=== PATIENT | female | born 1945 | race Caucasian/White ===

== ENCOUNTER 2020-12-04 16:18 | Inpatient (IN) | payer OTHER ==
[~2020-12-04] VITALS: Ht 162.6 cm; Wt 69.9 kg
[~2020-12-04 16:18] MED LIST: ADULT LOW DOSE81 MG PO; AMITRIPTYLINE H25 M2 PO; ARICEPT 5 MG TAB5 MG PO; AZITHROMYCIN 2250 MG PO; BENTYL PO; BIOTIN5000 MCG PO; BUPROPION XL150 MG PO; BUSPAR PO; BUTALB-CAFF-AC1 EACH PO; CALCIUM 600 +1 EAC1 PO; CEFDINIR300 MG PO; CHROMIUM PICO200 MCG PO; CYMBALTA60 MG PO; FENOFIBRATE160 MG PO; FLAGYL500 M1 PO; FOSAMAX 70 MG T70 M1 PO; INDERAL LA 80 M80 M1 PO; KEFLEX500 M1 PO; LEVOTHYROXINE0.05 MG PO; LOPERAMIDE 2 MG2 M1 PO; MENOPAUSE SUPPO20 MG PO; MIRALAX119 GM PO; MOBIC15 MG PO; NIASPAN ER 101000 M1 PO; NORCO 5-325 TA1 EAC1 PO; OSCIMIN0.125 MG PO; PRILOSEC40 MG PO; PROAIR HFA8.5 GM INH; REMIFEMIN; RESTORIL15 MG PO; SIMVASTATIN40 MG PO; TRAMADOL 50 MG50 MG; VENLAFAXINE HC150 M1 PO; VITAMIN D2000 UNIT PO; VITAMIN E400 UNIT PO; VITAMINC500 PO; XANAX 0.25 MG0.25 MG PO; XANAX 0.5 MG0.5 MG PO
[2020-12-05 05:20] VITALS: BP 136/85
--- NOTE | 2020-12-05 07:55 | NUR ---
Admitted via ER via [facility] and facility. Alert and orientated to name only but states she is at [facility]. Calm, cooperative and compliant. Able to answer many of the question coherently. Ambulates with regular, steady gait. Reportedly took extra amytriptiline and xanax wanting to "end it all". Continues to state that she wants to end it all and that it would be nice to go to sleep and not wake up but denies having a plan or wanting to actively harm herself. Denies SI. States she is frequently losing her phone and checkbook and became angry and had an outburst because she did not want to disappoint her sister. Breath sounds clear. Reg HR auscultated. Color pink with brisk capillary refill and palpable peripheral pulses. No edema noted. Independent with voiding. States she needs to take Imodium prior to eating d/t diarrhea. Active bowel sounds over soft, rounded abdomen. Stool in ER per report. Hemmoroids around rectum. Currently sitting in dining room without s/o distress. Message left for DPRAJESH to call unit to obtain consents. Dr. Cardoso and Dr. Morris notified of admission, orders obtained.
[2020-12-05] MEDS ORDERED: BENTYL 10 MG CA10 M1 PO (08:32)
[2020-12-05] MEDS ORDERED: LEVOTHYROXINE50 MCG PO (08:32)
[2020-12-05] MEDS ORDERED: SINGULAIR 10 MG10 M1 PO (08:32)
[2020-12-05] MEDS ORDERED: NORVASC5 MG PO (08:33)
[2020-12-05 10:10] VITALS: BP 124/72
--- NOTE | 2020-12-05 18:44 | NUR ---
DYSPHORIC MOOD-IRRITABLE AND DEMANDING WITH NURSING STAFF- CONVERSING LOUDLY IN DAYROOM WITH PEERS AT BREAK[employer]ST STATING "THIS PLACE IS TERRIBLE I HAVEN'T GOTTEN MY IMMODIUM SO I CAN'T EAT" ""I DON'T KNOW WHAT TO DO-NOBODY IS TALKING TO ME" EXPLAINED TO PT ADMIT ORDERS WERE BEING ENTERED AND PHARMACY HAD NOT VERIFIED SO MED WASN'T AVAILABLE-OFFERED TO HOLD BACK BREAKFAST TRAY AND HEAT UP LATER BUT REFUSES-THEN LOUDLY STATING IN DAY ROOM "I HAD BM IN MY PANTS BECAUSE I DIDN'T GET MY IMMODIUM" DENIES SI/SH. DENIES C/O PAIN. GAIT STEADY WITHOUT ASSISTIVE DEVICES.
[2020-12-05 19:39] VITALS: BP 143/88
--- NOTE | 2020-12-06 03:10 | NUR ---
ASSUMED CARE FROM DAY SHIFT , PT AMBULATING IN HALLWAY AND DAYROOM, WITH FLAT AFFECT AND APPEARS TO KNOW WHY SHE IN HOSPTIAL AND THAT SHE IS EEVN IN THE HOSPTIAL. PT IS ALERT AND ORIENTED TO SELF. PT COOPERATIVE TOOK PO MEDICATION, AWAKE IN DAYROOM AND REFUSE TO RETURN TO ROOM TO REST. PT REMANIN UP IN DAYROOM TALKING TO OTHER THAT ARE NOT SLEEPING . PT REMAIN CALM AND COOPEATIVE, WILL REPORT CHANGES OR ABNORMAL FINDINGS.
[2020-12-06 10:00] VITALS: BP 136/88
--- NOTE | 2020-12-06 13:33 | NUR ---
Nutrition: pt admit after transfer from [facility] with unspecified dression, SI. Pt with hx of IBS-chronic diarrhea; has to take Immodium q am. Intake 50-75%. Wt is WNL. Per [facility] records, wt's in 2020 were 140-150 lb; no significant loss. No metabolic labs, TSH >4. Meds: Levothyroxine, lopermide, vit E, vit D, vit C, calcium. Pt assessed at low nutrition risk at this time.
--- NOTE | 2020-12-06 14:07 | NUR ---
Alert and orientated to name and place. Denies SI/HI. Confused speech at times. Interacting with peers and staff. Breath sounds clear. Reg HR auscultated. Color pink with brisk capillary refill and palpable peripheral pulses. No edema. Independent with voiding. Reports BM yesterday. Active bowel sounds over soft, rounded abdomen. Regular, steady gait. Currently participating in group without s/o distress.
--- NOTE | 2020-12-06 16:03 | NUR ---
MARIA DEL CARMEN attempted to contact Pt's son Bony. SW left a message for a return call
[2020-12-06 19:54] VITALS: BP 136/73
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
--- NOTE | 2020-12-06 22:31 | NUR ---
PT SITTING IN CHAIR WITH FEMALE PEERS AT TABLE. PT NOT COLORING WITH PEERS BUT TALKING WITH THEM. PT HAS DAVIS FACE, GUARDED WITH STAFF. PT COMPLIANT WITH MEDS. PT JOKING WITH NURSE BUT FACIAL EXPRESSIONS DO NOT MATCH JOKING TONE OF VOICE. STEADY GAIT.
[2020-12-07 08:31] VITALS: BP 108/67
--- NOTE | 2020-12-07 13:14 | NUR ---
Alert and orientated to person and place. Denies SI/HI. Does not recall taking extra meds which promted admission but states she is glad they took it seriously. Ambulates with regular, steady gait. Interacting with peers. Breath sounds clear. Reg HR auscultated. Color pink with brisk capillary refill and palpable peripheral pulses. Independent with voiding. Reports BM yesterday. Active bowel sounds over soft, flat abdomen. Area around anus much less red without excoriation, improved since yesterday.
--- NOTE | 2020-12-07 13:55 | NUR ---
SW left message for pt's son stating we are trying to reach him to schedule a family meeting. MARIA DEL CARMEN asked for a return call. SW team will continue to monitor.
[2020-12-07 20:06] VITALS: BP 90/52
[2020-12-07 22:23] LABS: URINE BILIRUBIN NEGATIVE (Negative); URINE BLOOD 3+ (Negative); URINE CLARITY SL CLOUDY; URINE COLOR YELLOW; URINE GLUCOSE-RANDOM* NEGATIVE (Negative); URINE KETONES NEGATIVE (Negative); URINE PROTEIN (DIPSTICK) TRACE (Negative); URINE UROBILINOGEN 0.2 E.U./dl (0.2-1.0)
[2020-12-07 22:25] LABS: URINE LEUKOCYTES-REFLEX 3+ (Negative); URINE NITRITE-REFLEX POSITIVE (Negative)
[2020-12-07 22:32] LABS: CASTS None Seen /LPF (None Seen); RENAL EPITHELIAL CELLS 4-10 Moderate /LPF (None Seen); SQUAMOUS 0-3 Few /LPF (0-3); URINE RBC >20 Many /HPF (0-2); URINE WBC-REFLEX >25 Many /HPF (0-5)
[2020-12-07 22:33] LABS: BACTERIA-REFLEX >30 Many /HPF (None Seen); CRYSTALS None Seen /LPF (None Seen)
--- NOTE | 2020-12-07 22:54 | NUR ---
Pt. ambulating in unit without s/o distress. Given hat to obtain UA. Results called to RICKY Nelson, states she will place order.
--- NOTE | 2020-12-08 03:50 | NUR ---
Assumed care on 12/08/20 @ 0001, @ 0330 noted to be awake, seated at a table in the day room socializing with a peer. Asks the time and says she slept for a while, and then woke up, so she throught that she would come to "the livingroom for a while". Reports that she slept well while she was asleep.
[2020-12-08 10:01] VITALS: BP 106/67
--- NOTE | 2020-12-08 14:40 | NUR ---
MARIA DEL CARMEN left voice message asking Arslan to call MARIA DEL CARMEN regarding scheduling a family meeting. He returned the phone call and left a message. When MARIA DEL CARMEN attempted to reach him several times yesterday as well as today, MARIA DEL CARMEN received a message stating his voicemail box is full. MARIA DEL CARMEN was not able to leave additional message. MARIA DEL CARMEN team will remain available.
--- NOTE | 2020-12-08 16:44 | NUR ---
ORIENTED TO NAME ONLY THIS AM-IS AWARE THAT SHE IS HOSPITAL AND ATTEMPTS TO COVER CONFUSION BY STATING "DON'T YOU KNOW YOU WORK HERE" DEPENDENT,NEEDY AT TIMES ASKING PEERS TO GET HER WATER OR GET A BLANKET FOR HER DESPITE BEING SHOWN WHERE SHE CAN GET HER OWN. GAIT IS STEADY WITHOUT ASSISTVE DEVICES. COMPLIENT WITH MEDS ALTHOUGH APPEARS SUSPICIOUS WHEN GIVEN 1200 BENTYL AND EXPLAINED IT WAS FOR HER CHRONIC IBS/BOWEL ISSUES STATES "I DON'T HAVE AN BOWEL ISSUES THAT IS NOT MINE" DYSPHORIC MOOD. AGAPITO C/O PAIN. ABD SOFT/NONTENDER. VS WNL
[2020-12-08 20:40] VITALS: BP 101/55
[2020-12-08 21:13] VITALS: BP 101/55
--- NOTE | 2020-12-09 02:42 | NUR ---
PATIENT VISITED WITH OTHER PATIENTS IN DINING ROOM [facility]. SHE IS A/0X2-3. SHE DENIES PAIN. DENIES SI/HI/AVH. SHE AMBULATES WITH STEADY GAIT. SHE TOOK HER MEDS WHOLE WITH WATER. SHE GOT BACK OUT OF BED WITHIN AN HOUR AND WANTED TO KNOW IF SHE GOT AMITRYPTALINE. I EXPLAINED DR DID NOT ORDER THAT BUT SHE DID HAVE OLANZAPINE. NEW ORDER WAS PUT IN BY DR STEWART FOR TRAZADONE 25MG PO. PATIENT WAS STILL AWAKE AT THAT TIME AND TRAZADONE GIVEN WITH DICYCLOMINE AT 2330. PATIENT BACK TO BED. 2 HOURS LATER PATIENT CAME OUT OF ROOM DROWSY AND WANDERING. SHE STATES SHE JUST GOT UP TO WALK. I EXPLAINED THAT SHE SHE LOOKS VERY DROWSY AND WITH THE SLEEPING MED I DID NOT WANT HER TO FALL AND ASKED HER TO GO LAY BACK DOWN. SHE WENT BACK TO BED AND HAS BEEN SLEEPING SINCE. BED IN LOW POSITION. ROUTINE ROUNDS TO ASSESS SAFETY AND STATUS OF PATIENT. CONTINUING TO MONITOR.
[2020-12-09 09:38] VITALS: BP 136/65
--- NOTE | 2020-12-09 17:30 | NUR ---
HAS BEEN VISIBLE IN DAYROOM INTERACTING WITH PEERSATTENDING SCHEDULED GROUPS. ORIENTED TO PERSONAND IS AWARE IN HOSPITAL. GAIT STEADY. DENIES PAIN/DISCOMFORT. DENIES DISTURBANCE OF APPETITE.COMPLIENT WITH MEDICATIONS.
[2020-12-09 19:10] VITALS: BP 117/69
[2020-12-09 20:20] VITALS: BP 117/69
--- NOTE | 2020-12-10 02:46 | NUR ---
PATIENT WENT TO BED AROUND 2030 TONIGHT. SHE HAS BEEN CALM AND COOPERATIVE. SHE HAS BEEN SMILING AND SOCIALIZING WITH SOME OTHER FEMALE PATIENTS AT SNACK TIME. SHE DENIES PAIN. SHE DENIES SI/HI/AVH. SHE HAS BEEN COMPLIMENTING THE STAFF AND IS HAPPY WITH HOW THIS UNIT HAS HELPED HER. SHE STATES, "SOMETIMES YOU JUST NEED A FRESH START." SHE STATES SHE IS FEELING MUCH BETTER AND IS HOPING SHE CAN GO BACK TO THE PLACE SHE STAYS ([facility] I TOLD HER FAR I'VE SEEN THAT SHOULD NOT BE A PROBLEM. PATIENT IS A/0X2 AND IS FORGETFUL AND CONFUSED AT TIMES. PATIENT IS INDEPENDENT WITH CARES. SHE WALKS WITH A STEADY GAIT. SHE TOOK HER MEDS WHOLE WITH WATER. PATIENT SLEEPING AT THIS TIME.
[2020-12-10 09:14] VITALS: BP 93/60
--- NOTE | 2020-12-10 11:24 | NUR ---
Alert and orientated to person, place and time. Does not recall taking extra meds prior to admission and becomes upset when reminded. Denies SI/HI at this time. Calm and cooperative, interacting with peers and staff. Compliant with meds but repeatedly states she can't believe she is taking this many meds. Breath sounds clear. Reg HR auscultated. Color pink with brisk capillary refill and palpable peripheral pulses. Independent with voiding. Active bowel sounds over soft, rounded abdomen. States she had BM this AM. Ambulates with regular, steady gait. Currently in day room watching TV with peers.
[2020-12-10 19:14] VITALS: BP 121/64
--- NOTE | 2020-12-11 02:32 | NUR ---
Assumed care on 12/10/20 @ 1900. Cooperative with assessment and compliant with meds, taking p.o. meds whole with water. A&Ox4, Deny depression, anxiety. Denies BLOOM/HV. Ambulates independently, BM today on 12/10. Sleeping well rubi bed with bed in low position, will continue to monitor for safety and comfort as per unit protocol.
[2020-12-11 02:35] VITALS: BP 121/64
--- NOTE | 2020-12-11 11:51 | NUR ---
HAS BEEN VISIBLE ON UNIT ATTENDING SCHEDULED ACTIVITIES WITH SLIGHTLY IMPROVED LEVEL OF PARTICIAPTION. DID REMAIN OUT OF ROOM THIS DURING FREE TIME-LITTLE NOTED INTERACTION WITH PEERS STATING "ALL THE ONES I KNOW LEFT YESTERDAY" DOES APPEAR MORE ANIMATED AND VERBOSE DURING 1;1 INTERACTION WITH NURSING STAFF. GAIT STEADY WITH USE OF ROLLER WALKER.
--- NOTE | 2020-12-11 12:49 | NUR ---
MARIA DEL CARMEN and Dr. Jeronimo partcipated in a family meeting with the Pt's son/DPOA, Bony Harper [phone]. An update was given and medications reviewed. A recommendation of [place] memory care was also given. Bony is in agreement with the recommendation. Bony Reported the Pt has LTC insurance and requested a referral be sent to [facility]. Bony did not have any question or concerns during this meeting. MARIA DEL CARMEN will continue to follow
--- NOTE | 2020-12-11 12:51 | NUR ---
Sw sent referral to the following: [facility]
--- NOTE | 2020-12-11 16:05 | NUR ---
Pt was accepted by [facility].
[2020-12-11 19:48] VITALS: BP 122/70
--- NOTE | 2020-12-12 04:35 | NUR ---
Assumed care on 12/11/20 @ 1900. Seated with 2 other female peers at a table in the day room. Ambulates independently. Denies depression and anxiety. Follows up by saying that her anxiety is better. A&Ox4, Expresses attempts to preform well in group and improve so as to be able to leave hospital. HRRR, Lungs CTA bilat, ABD N BS, Reports BM yesterday, consistent with IBS is loose yet did not experience cramping. Woke in the night and sat up for a while, had a conversation with this nurse, then returned to bed. Will continue to monitor as per unit protocol.
--- NOTE | 2020-12-12 08:42 | NUR ---
RT Progress Note- Farheen has been present in the milieu and all recreation therapy groups since her admission. She is goal oriented and willing to "do what I need to do." Farheen has made friends in female pts on the unit and is seen interacting with them during unstructured time. In groups she is pleasant and engaged with occasional reminders of direction r/t cognition. CIRCUS PERFORMER will continue to encourage pts participation.
[2020-12-12 09:31] VITALS: BP 117/62
[2020-12-12 18:48] VITALS: BP 117/62
--- NOTE | 2020-12-12 19:03 | NUR ---
Assumed pt care at 0700. pt was calm and co-operative with care. Assessments completed, vss. ambulates with a steady gait. took meds whole, no difficulty noted. Denies si/hi. No c/o pain at this time. participated in groups. no sign of acute distress noted upon assessments. pt spoke to son and her sister over the phone. will continue to monitor pt.
[2020-12-12 19:47] VITALS: BP 113/56
[2020-12-13 05:10] VITALS: BP 113/56
[2020-12-13 05:15] LABS: HEMOGLOBIN 12.8 gm/dL (12.0-15.0); MCH 30.4 pg (26.0-34.0); MCHC 33.5 g/dL (28.0-37.0); MCV 90.7 fL (80.0-100.0); RBC 4.19 mil/uL (4.20-5.00); RDW 12.9 % (10.5-14.5); WBC 5.5 thou/uL (4.0-11.0)
[2020-12-13 05:27] LABS: POTASSIUM 4.2 mmol/L (3.5-5.1)
--- NOTE | 2020-12-13 05:54 | NUR ---
Assumed care on 12/12/20 @ 1900. Socializing with female peers and watching TV. Cooperated with assessment and compliant with medication administration, taking p.o. meds whole with water. Retired @ and slept 7.8 hours ovrnight.
[2020-12-13 10:44] VITALS: BP 134/49
--- NOTE | 2020-12-13 10:56 | NUR ---
Nutrition follow-up: No recent wt, prior wt stable. Intake avg >75%. BUN 19. Meds reviewed. No nutrition concerns apparent. Continues at low nutrition risk.
--- NOTE | 2020-12-13 13:09 | NUR ---
PT ALERT AND ORIENTED TIMES FOUR. VSS. PT DENEIS PAIN/SOA. DENEIS SI/HI/AV/AH. PT TOLERATES MEDS AND MEALS. PT INTERACTS WELL WITH STAFF AND PEERS. PT ATTENDS GROUPS. WILL CONTINUE TO MONITOR.
--- NOTE | 2020-12-13 18:05 | NUR ---
MARIA DEL CARMEN spoke with Bony about discharge. Bony stated he is working with [facility]. MARIA DEL CARMEN informed Pt is ready for d/c. Bony believed he would have the paperwork and move completed by 12/18/2020. Bony would like to transport the Pt. Discharge set for 12/18/2020 @ 1300 going to [facility].
[2020-12-13 19:41] VITALS: BP 147/95
--- NOTE | 2020-12-13 23:24 | NUR ---
Assumed care on 12/13/20 @ 1900, ambulating from day room to bed room, socializing with female peers and watching TV. cooperates with assessment and compliant with medication, taking meds whole wih waer. HRRR, Lung sounds clear bilat, ABD N BS and reports no BM today, reports a normal for herself BM yesterday, with out diarrhea. Reoirts very little anxiety and says her depression will be beter when she knows her next step. Denies H/A and H/V. Retired to bed @ and has eyes closed, respirations even and unlabored. Bed in low position. Will continue to monitor for safety and comfort.
[2020-12-14 09:10] VITALS: BP 127/65
--- NOTE | 2020-12-14 12:31 | NUR ---
PATIENT CARE ASSUMED TEE 0730 -PATIENT ALERT AND ORIENTED. COMPIANT WITH MEDICATIONS. COMPLAINED OF INSOMNIA AND NOT HAPPY WITH NIGHT TIME MEDICATIONS. REQUESTED AMITRIPTILINE BUT ADVISED HER SHE HAD OVERDOSED ON THIS MEDICATION - SHE WAS CONCERNED ON WHY IT HAD BEEN CHANGED. PATIENT CONTINUES TO STATE DOES NOT KNOW WHY SHE IS HERE - THOUGH EXPLAINED MANY TIMES. ADMITS TO DEPRESSION AND ANXIETY 04/08 BUT DUE TO BE HELD HERE AGAINST HER WISHES. HAS BAD BOWEL MOVEMENT TODAY AND FORMED STOOL ACCORDING TO PATIENT. DENIES ANY THOUGHTS OF S/I OR H/I. MADE STATEMENT TO THIS WAITER/WAITRESS BAR - " WELL GUESS WILL JUST HAVE TO ACCEPT THE FACT THAT I AM GOING TO IN HERE." REASSURED PATIENT NOT THE CASE AND THIS NOT A CUSTODIAL CARE FACILITY. HERE TO HELP WITH MEMORY AND ADDRESS S/I IDEATIONS AND DISCHARGE WHEN STAFF FEELS SAFE FOR YOU TO RETURN TO CURRENT LIVING ARRANGEMENTS. PATIENT VERY IRRITATED AND RESISTIVE TO EXPLANATION. WILL CONTINUE TO ENCOURAGE PATIENT AND REASSURE HER CONCERNS.
[2020-12-14 19:44] VITALS: BP 109/58
--- NOTE | 2020-12-15 03:49 | NUR ---
PATIENT AOX3 CONFUSED AND FORGETFUL AT TIMES. PATIENT HAD HIGH ANXIETY. PATIENT HAD A FLAT AFFECT, POOR EYE CONTACT, GOOD GROOMING AND HYGIENE. PATIENT IN BED ASLEEP AT THIS TIME BREATHING REGULAR AND UNLABOURED.
[2020-12-15 08:58] VITALS: BP 130/72
--- NOTE | 2020-12-15 11:40 | NUR ---
HAS BEEN VISIBLE IN DAYROOM MAJORITY OF AM-ATTENDING SCHEDULED GROUPS WITH FULL LEVEL OF PARTICIPATION. SLIGHTLY MORE ANIMATED DURING 1;1 INTERACTION WITH THIS NURSE ESPECIALLY WHEN SPEAKING OF TEACHING CAREER AND ENJOYMENT OF WORKING WITH CHILDREN. ORIENTED TO PERSON/HOSPITAL-NOT TO DATE. DENIES SI/SH/HI. GAIT STEADY. DENIES C/O PAIN. DOES REPORT SOME VAGINAL ITCHING -NO DISCHARGE PER PT REPORT. NOTIFIED ORDERS RECEIVED FOR DIFLUCAN PO X1 NOW.DENIES DISTURBANCE OF SLEEP REPORTING "SLEPT LIKE A BABY" OR APPETITE-EATING GRATER THAN 75 PERCENT ALL MEALS.
[2020-12-15 19:19] VITALS: BP 138/73
[2020-12-15 20:40] VITALS: BP 138/73
--- NOTE | 2020-12-16 04:59 | NUR ---
PATIENT HAS BEEN IN HER ROOM ALL EVENING. SHE HAS BEEN CALM AND COOPERATIVE. SHE WENT ON ABOUT HOW SHE IS LEARNING ALOT HERE AND HAS ENJOYED THE GROUPS. SHE IS HOPING TO LEAVE SOON SHE FEELS SHE IS MUCH BETTER. SHE DOESN'T REMEMBER TAKING EXTRA PILLS OF AMITRYPTALINE BUT SHE DOES REMEMBER HOW OVERWHELMED SHE FELT AND SHE STATES SHE DIDN'T KNOW WHAT TO DO. SHE IS CONCERNED ABOUT WHERE SHE WILL BE LIVING WHEN SHE LEAVES HERE. I EXPLAINED THAT PEOPLE HERE WILL GET HER SET UP SO SHE DOESN'T HAVE TO WORRY ABOUT ALL THE DETAILS OF MOVING. THIS SEEMED TO RELIEVE HER MIND. PATIENT DENIES PAIN. SHE HAS SLEPT ALL EVENING. SHE DID NEED A 2ND DOSE OF TRAZADONE 50MG TO HELP HER SLEEP. SHE DENIES SI/HI/AVH. PT IS SMILING MORE. LESS SAD. LESS FLAT AFFECT. CONTINUING ROUTINE ROUNDING TO ASSESS SAFETY AND STATUS OF PATIENT.
[2020-12-16 08:58] VITALS: BP 117/56
[2020-12-16 12:05] VITALS: BP 117/56
--- NOTE | 2020-12-16 12:59 | NUR ---
1300 RESUMMED CARE FROM OVERNIGHT SHIFT THIS AM, PATIENT IN ROOM QUIET. PATIENT GOT UP AND CAME TO DAY ROOM FOR BREAKFAST; PATIENT ALERT ORIENTED TIMES 3. PATIENT DENIES SI/HI/AH/VH AT PRESENT PATIENT DID ASK IF THIS WAS THE PYSCH HU. I TOLD HER THIS IS THE BEHAVIORAL UNIT AND THAT SHE HAS SOME ISSUES THAT NEEDED ADDRESSING. PATIENTS ABDOMEN SOFT BOWEL SOUNDS PRESENT PATIENTS LUNGS CLEAR. PATIENT DID COMPLAIN OF A HEADACHE ST 1310 I GAVE PATIENT TYLENOL. PATIENT COOPERATIVE PARTICPATES IN GROUPS INTERACTS WITH OTHER FEMALE PATIENTS. WILL CONTINUE TO MONITOR PATIENT FOR SAFETY AND BEHAVIORS.
--- NOTE | 2020-12-16 17:53 | NUR ---
CORINNE recieved a call from Ibeth, Pt's sister, concerning placement. Ibeth informed she visited [facility] and provided them with the care home insurance policy. Ibeth also reported that the Pt's son wants to take the Pt back to the [facility]. Ibeth expressed frustraion with the situation. Ibeth also stated she had a chance to talk with the Pt and felt the Pt was very confused. Ibeth expressed wanting the Pt to go to the [facility], [place], operated by [facility]. Corinne did inform that it was not advisable for the Pt to Return to [place] at the [facility] and goode hotline if this is the choice Bony will make. CORINNE expressed safety concerns for the PT if she returned to [place]. Ibeth agreed and stated she would call Bony to get a moveing company hired to assist with the move. CORINNE will continue to follow. Pt is set to D/C 12/18/2020 @ 1300
[2020-12-16 19:34] VITALS: BP 116/58
[2020-12-16 20:30] VITALS: BP 116/58
--- NOTE | 2020-12-17 04:51 | NUR ---
PT SOCIALIZED OUT IN THE DINING ROOM TONIGHT BEFORE RETIRING TO BED EARLY. PT TOOK HER MEDS WHOLE WITH WATER. ON ASSESSMENT SHE STATES SHE HAD A GOOD DAY BUT WAS JUST BORED. 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 PATIENT LOVES TO READ AND LOVES BOOKS SHE STATES. SHE LIKES TO COLLECT ANY OLD CLASSIC BOOKS. PATIENT DENIES SI/HI/AVH. SHE IS A/0X 3-4 AND FORGETFUL AT TIMES. SHE STATES HER VAGINAL ITCHING HAS DECREASED ALOT AND IS FEELING BETTER ABOUT THIS. VSS. PT APPROPRIATE AND PLEASANT. SMILING. PT SLEEPING WITH BED IN LOW POSITION WITH ROUTINE ROUNDING. DENIES PAIN. CONTINUING TO MONITOR.
[2020-12-17 09:02] VITALS: BP 148/83
--- NOTE | 2020-12-17 17:09 | NUR ---
CORINNE spoke with Genesis at [facility] concerning services for Pt. Genesis informed they have and aging in place service through [facility]. However the family has not secured the services. Genesis was informed the the family had a meeting with CORINNE. CORINNE informed that Pt is being discharged and there was no meeting set. Genesis provided the fax number to [facility] [phone]. Corinne will fax a referral for the aging in place program.
--- NOTE | 2020-12-17 17:21 | NUR ---
MARIA DEL CARMEN attempted to call Bony love today and was unable to leave a voicemail. Due to VM being full. MARIA DEL CARMEN did sprak to Ibeth today and informed her about the conversation with Genesis. MARIA DEL CARMEN reiterated safety concerns for the Pt if she returned to the [facility] without 24 hr supervision. MARIA DEL CARMEN encouraged the family to speak with Christi about the aging in place program. Ibeth stated she would call Janice concerning the matter and Genesis at [facility] about the program. MARIA DEL CARMEN will continue to follow
[2020-12-17 20:01] VITALS: BP 95/67
--- NOTE | 2020-12-18 04:47 | NUR ---
ASSUMED CARE ON 12/17/20 @ 1900, AMBULATING THROUGHOUT THE MILEU AND SOCIALIZING WITH PEERS IN THE DAY ROOM. PLEASANT AFFECT NOTED, A&OX3. CALM AND COOPERATIVE WITH CARE. COOPERATIVE WITH ASSESSMENT, COMPLIANT WITH MEDICATION. SLEPT WELL UNTIL 04:30, THE AWOKE AND CAME OUT OF HER ROOM, AMBULATING THE HALLWAYS AND SITTING IN THE DAY ROOM. REPORTS IS LOOKING FORWWARD TO DISCHARGE. WILL CONTINUE TO MONITOR FOR SAFETY AND COMFORT PER [facility].
[2020-12-18] MEDS ORDERED: TRAZODONE HCL100 MG PO (08:43)
[2020-12-18] MEDS ORDERED: OLANZAPINE2.5 MG PO (08:44)
[2020-12-18] MEDS ORDERED: ZYPREXA 5 MG TAB5 M2 PO (08:44)
--- NOTE | 2020-12-18 08:55 | NUR ---
CORINNE recieved a call from Bony. Bony stated he could not get a moving company until 12/25/2020 to move Pt's things to [facility]. Bony informed the Pt would go back to the [facility]. CORINNE advised of saftey concerns withthe Pt going back without 24 hr supervision. Corinne encouraged Bony to contact [facility] about the aging in place program and get it started prior to Pt's discharge today. CORINNE informed that due to concerns of safety if proper supports are not in place CORINNE would have to hotline concerning the matter. Bony stated he would call Genesis at the [facility] to get service in place for the Pt. Pt will d/c 12/18/2020 back to the [facility]
[2020-12-18 09:00] VITALS: BP 95/67
--- NOTE | 2020-12-18 14:38 | NUR ---
PATIENT ALERT AND ORIENTED. NO PAIN DISCOMFORT - PROPERTY REVIEWED AND POSSESSIONS TRANSPORTED WITH PATIENT TO THE [facility]. REVIEWED PAPERWORK AND SIGNED. MEDICATIONS GIVEN SCHEDULED. PATIENT PICKED UP BY [employer] AT 14:30. ALL DOCUMENTATION SENT WITH TRANSPORTER TO BE GIVEN TO APPROPRIATE STAFF AT FACILITY.
--- NOTE | 2020-12-19 21:01 | D ---
[facility] [place] [address] DISCHARGE SUMMARY Name: PEYMAN MANLEY Room #: 528A-A [facility] IN .R.#: [id number] Admission: 12/05/20 Attend Phys: Eleazar Cardoso DO Discharge: 12/18/20 Date of : 45 Report #: [id number] THIS REPORT FOR: cc: Candice Olsen Linda J. DO Kerstein, Andrew H. DO ~ DATE OF SERVICE: 12/18/2020 INPATIENT PSYCHIATRIC DISCHARGE SUMMARY ATTENDING PSYCHIATRIST: Eleazar Cardoso DO. RECORDS TECH AT THE TIME OF DISCHARGE: Xander Hernández MD DISCHARGE DIAGNOSES: Major neurocognitive disorder, unspecified etiology with behavioral disturbance, improved. Also, unspecified psychosis. Medical comorbidities include urinary tract infection, resolved; hypertension; hypothyroidism; fibromyalgia. DISCHARGE PLAN: The patient is discharging back to The [facility] 24-hour care and has been recommended moving was not available to [facility] until 12/25. DIET: Regular. ACTIVITY LEVEL: As tolerated. No alcohol, no illicit drugs. DISCHARGE MEDICATIONS: Omeprazole 40 mg oral daily, propranolol LA 80 mg oral daily for anxiety, omeprazole for GERD, fenofibrate 145 mg oral daily for hypertriglyceridemia, meloxicam 15 mg oral daily for arthritis, calcium carbonate with vitamin D3 one tablet oral twice daily for supplementation, vitamin E 400 international daily for supplementation, ascorbic acid 500 mg oral daily for supplementation, vitamin D 2000 international units oral daily for supplementation, Donepezil 5 mg oral daily, outpatient this can be increased to 10 mg oral daily, was not exactly sure how long she has been on it. MiraLax 17 g oral daily for bowel motility, loperamide 4 mg oral p.r.n. for diarrhea, levothyroxine 50 mcg oral daily for replacement, montelukast 10 mg oral daily for allergies and asthma, dicyclomine 10 mg oral 4 times daily, Bentyl for irritable bowel syndrome, amlodipine 5 mg oral daily for hypertension, trazodone 100 mg oral daily at 2200 for sleep, olanzapine 2.5 mg oral twice daily for psychosis morning and afternoon and 5 mg at bedtime. The patient requires 24-hour care in supervision and sedated. LABORATORY DATA: From this admission, CBC: H and H 12.8 and 38.0, white count 5.5, platelet count 327. Chemistries: Sodium 145, potassium 4.2, chloride 106, [address] [address] DISCHARGE SUMMARY Name: PEYMAN MANLEY Room #: 528A-A [facility] IN [facility]#: [id number] Admission: 12/05/20 Attend Phys: Eleazar Cardoso, DO Discharge: 12/18/20 Date of : 45 Report #: [id number] bicarbonate 29, anion gap 10, BUN 19, creatinine 1.0, estimated GFR 54, glucose 112, calcium 9.0. TSH slightly elevated at 4.237. Urinalysis showed trace protein, 3+ blood, nitrites, leukocyte esterase several other positives including bacteria. The patient grew E. coli and Enterobacter aerogenes and she was treated with a 5-day course of cephalexin 500 mg p.o. b.i.d. REASON FOR ADMISSION: Back on the or so november, 75-year-old female initially admitted to [facility]. She intentionally overdosed on Xanax and amitriptyline. She "wanted to end it all." HOSPITAL COURSE: The patient was admitted to Geriatric Psychiatry Unit. Initially, the patient was irritable, agitated. She did respond well to initiation of olanzapine. There was some challenge in working on placement for her. Fortunately, she does have long-term care insurance, unfortunately [facility] can take her to the end of November, so in the interim, the son, Bony, will provide for 24-hour attendant care for her. Neglected to review EKG done on 12/04/2020. QTC 455, QT 434, ventricular rate 66, sinus rhythm. PHYSICAL EXAMINATION: VITAL SIGNS: On the day of discharge, temperature 35.6, pulse 56, respirations 16, BP 95/67. MUSCULOSKELETAL: Normal gait and station. MENTAL STATUS EXAMINATION: This is a well-developed, fairly nourished female, appearing stated age. Attention fair. Concentration limited. Speech is normal rate and tone. Thought process is linear and goal directed. Thought content focused on discharge, psychomotor agitation or psychomotor retardation. Denied SI or HI. Denied auditory, visual, or tactile hallucination. Denied hopelessness, helplessness. Mood and affect was congruent, fairly euthymic. Memory not formally tested on the day of discharge. Insight and judgment limited. Fund of knowledge average at best. PROGNOSIS: For this patient is guarded given the age of 75, having a neurodegenerative disorder. <ELECTRONICALLY SIGNED> By: Eleazar Cardoso DO 12/19/202100 26 901 Eleazar Cardoso DO /nt
== END 2020-12-18 14:42 | DRG 884 ==
LOC: SBH
PROVIDERS: Hospitalist; ADMIT Psychiatry & Neurology Psychiatry; ATTEND Psychiatry & Neurology Psychiatry
DX: F01.51 Vascular dementia, unspecified severity, with behavioral disturbance (principal); N39.0 Urinary tract infection, site not specified; R45.851 Suicidal ideations; F29 Unspecified psychosis not due to a substance or known physiological condition; I10 Essential (primary) hypertension; E03.9 Hypothyroidism, unspecified; F32.9 Major depressive disorder, single episode, unspecified; M79.7 Fibromyalgia; G43.909 Migraine, unspecified, not intractable, without status migrainosus; E78.5 Hyperlipidemia, unspecified; J44.9 Chronic obstructive pulmonary disease, unspecified; E87.6 Hypokalemia; E83.42 Hypomagnesemia; J30.2 Other seasonal allergic rhinitis; Z90.49 Acquired absence of other specified parts of digestive tract
CPT/HCPCS: 10880

== ENCOUNTER 2020-12-04 17:45 | Emergency (ER) | payer OTHER ==
[~2020-12-04] VITALS: Ht 165.1 cm; Wt 68.0 kg
[2020-12-04 21:31] LABS: URINE BILIRUBIN NEGATIVE (Negative); URINE BLOOD NEGATIVE (Negative); URINE CLARITY CLEAR; URINE COLOR YELLOW; URINE GLUCOSE-RANDOM* NEGATIVE (Negative); URINE KETONES NEGATIVE (Negative); URINE LEUKOCYTES-REFLEX NEGATIVE (Negative); URINE NITRITE-REFLEX NEGATIVE (Negative); URINE PROTEIN (DIPSTICK) NEGATIVE (Negative); URINE UROBILINOGEN 0.2 E.U./dl (0.2-1.0)
[2020-12-05 05:08] VITALS: BP 120/60
--- NOTE | 2020-12-05 07:01 | EKG ---
[facility] [employer] [place] [address] ELECTROCARDIOGRAM REPORT Name: KATHIE MANLEYN Ct Room #: [facility]#: [id number] Admission: 12/04/20 Attend Phys: Discharge: 12/05/20 Date of : 45 Report #: [id number] [facility] ED Test Date: 2020-12-04 Test Time: 18:06:51 Pat Name: PEYMAN MANLEY Department: Room: Gender: F Student Career Development Specialist: [email or web address] : 1945 Requested By: Jordon Looney Order Number: [id number] MD: Yohan Caldwell Measurements Intervals Arbuckle Rate: 66 P: 76 NH: 143 QRS: 78 QRSD: 99 T: 102 QT: 434 QTc: 455 Interpretive Statements Sinus rhythm Probable left atrial enlargement Low voltage, precordial leads Nonspecific T abnrm, anterolateral leads No previous ECG available for comparison Electronically Signed On 12-05-2020 7:01:44 CDT by Yohan Caldwell [email or web address] <ELECTRONICALLY SIGNED> By: Yohan Caldwell MD, [facility] 12/05/20 0701 1806 1806 Yohan Caldwell MD, FACC /EPI
[2020-12-05] MEDS ORDERED: LEVOTHYROXINE50 MCG PO (08:32)
[2020-12-05] MEDS ORDERED: BENTYL 10 MG CA10 M1 PO (08:32)
[2020-12-05] MEDS ORDERED: SINGULAIR 10 MG10 M1 PO (08:32)
[2020-12-05] MEDS ORDERED: NORVASC5 MG PO (08:33)
== END 2020-12-05 05:14 ==
LOC: ER 17:45
PROVIDERS: Emergency Medicine
DX: R45.851 Suicidal ideations (principal); E03.9 Hypothyroidism, unspecified; K21.9 Gastro-esophageal reflux disease without esophagitis; G43.909 Migraine, unspecified, not intractable, without status migrainosus; Z90.49 Acquired absence of other specified parts of digestive tract; Z90.710 Acquired absence of both cervix and uterus; Z79.899 Other long term (current) drug therapy; Z88.1 Allergy status to other antibiotic agents; Z88.8 Allergy status to other drugs, medicaments and biological substances; Z20.822 Contact with and (suspected) exposure to COVID-19

== ENCOUNTER 2021-01-14 14:48 | Inpatient (IN) | payer OTHER ==
[~2021-01-14] VITALS: Ht 162.6 cm; Wt 68.0 kg
[~2021-01-14 14:48] MED LIST changes: +BENTYL 10 MG CA10 M1 PO; +LEVOTHYROXINE50 MCG PO; +NORVASC5 MG PO; +OLANZAPINE2.5 MG PO; +OLANZAPINE5 M1 PO; +SINGULAIR 10 MG10 M1 PO; +TRAZODONE HCL100 MG PO; +ZYPREXA 5 MG TAB5 M2 PO
[2021-01-14 17:32] VITALS: BP 144/79
[2021-01-14 22:00] VITALS: BP 144/79
[2021-01-15 06:46] LABS: CHOLESTEROL 274 mg/dL (<200); HDL CHOLESTEROL 40 mg/dL (>40); LDL CHOLESTEROL 194 mg/dL (<100); TC:HDL 6.9 Ratio (Not establshd); TRIGLYCERIDE 201 mg/dL (<150); VLDL 40 mg/dL (<40)
[2021-01-15 09:30] VITALS: BP 143/88
[2021-01-15 09:51] VITALS: BP 143/88
[2021-01-15 19:20] VITALS: BP 130/76
[2021-01-15 22:48] VITALS: BP 130/76
[2021-01-16 07:20] VITALS: BP 100/47
[2021-01-16 10:05] VITALS: BP 100/47
[2021-01-16 20:59] VITALS: BP 118/65
[2021-01-16 21:30] VITALS: BP 118/65
[2021-01-17] MEDS ORDERED: CLARITIN10 M2 PO (09:05)
[2021-01-17] MEDS ORDERED: MOBIC7.5 MG PO (09:07)
[2021-01-17] MEDS ORDERED: OLANZAPINE2.5 MG PO (09:09)
[2021-01-17] MEDS ORDERED: FLONASE 0.05%50 MCG NASAL (09:10)
[2021-01-17 09:40] VITALS: BP 118/68
[2021-01-17 11:32] VITALS: BP 118/68
[2021-01-17 12:32] VITALS: BP 118/68
[2021-01-17 15:59] VITALS: BP 118/68
--- NOTE | 2021-01-17 22:01 | H ---
[facility] [place] [address] HISTORY AND PHYSICAL Name: PEYMAN MANLEY Room #: 518A-A [facility] IN M.R.#: [id number] Admission: 01/14/21 Attend Phys: Mari Cardoso DO Discharge: 01/17/21 Date of : 45 Report #: [id number] THIS REPORT FOR: cc: Candice Olsen Linda J. DO Kerstein, Andrew H. DO ~ DOC #: [id number] MARI Cardoso DO DATE OF SERVICE: 01/14/2021 PSYCHIATRIC EVALUATION ATTENDING: Mari Cardoso DO PRIMARY CARE PHYSICIAN: Candice Olsen DO and Mignon Kaur, nurse practitioner. REASON FOR ADMISSION: Sent by EMS from [facility] where she is in independent living for suicidal ideation. HPI: 75 y/o female admitted who had previously been on the [facility] at [facility] in November of this year, having been discharged 12/18. The patient's initial date of admission was 12/05. The plan had been last admission were for her discharge to [facility], but there were issues with moving her and it thought she was going to be discharged temporarily back to [facility] with Aging in Place help. Apparently, they moved to Memory Care at [facility], did not materialize. embroidery worker, Sofie and I spoke briefly with her son, Bony about this. The patient has been isolating and not engaging in activities, apparently has experienced increased depression. It is unclear if she was medication compliant. In the interim that she has been out of the hospital. Her medications are quite a few and varied at time of discharge. Also, she had been treated for a multi-microbial UTI that is included Escherichia coli and Enterobacter and treated with cephalexin last admission. The patient, it should be noted, was diagnosed with major neurocognitive disorder, unspecified etiology with behavioral disturbance, unspecified psychosis. Aside from the UTI, she has hypertension, hypothyroidism and fibromyalgia. On interview today, the patient cannot tell me where she lives, really what was wrong with her. She denied suicidal ideation and I discussed with her, she would need to be likely placed in a Memory Care Facility. She did not have objection to that. So this author does believe that placement is the primary modality that will help this patient. LABORATORY DATA: Laboratories from [facility]. Hematology: White count 5.7, H and H 13.5 and 40.1, platelet count 338. Sodium 143, potassium 3.9, [address] [address] HISTORY AND PHYSICAL Name: SINDHUPEYMAN K Room #: 518A-A [facility] IN M.R.#: [id number] Admission: 01/14/21 Attend Phys: Mari Cardoso, Discharge: 01/17/21 Date of : 45 Report #: [id number] chloride 107, bicarbonate 30, anion gap 6, BUN 9, creatinine 0.8, estimated GFR 70, glucose 102, calcium 9.2, total bilirubin 0.3, AST 34, ALT 42, alkaline phosphatase 115, total protein 7.3, albumin 3.6. Triglycerides were 21. Cholesterol 274, LDL 194, HDL 40, lipase 169. TSH 4.237 that was from November. Urinalysis on 01/14 showed 2+ leukocyte esterase, few white cells, few bacteria. Urine culture showed no growth. Coronavirus was not detected checked by PCR on 01/14. Hemoglobin A1c is pending. VITAL SIGNS: Temperature 36.3, pulse 116, respirations 18, BP 143/88, O2 sat 98%, this morning, IMAGING: No imaging done this admission. Electrocardiogram was done this admission, it looks like last one was from 12/04. QTc was 455 and heart rate 66, sinus rhythm. 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 FAMILY HISTORY: Two sons. . No history of service. Denied physical, sexual or emotional abuse. SOCIAL HISTORY: No substance use history including alcohol, tobacco or recreational drugs. CURRENT MEDICATIONS IN THE HOSPITAL: Flonase, I was asked to order for her daily each nostril once squirt; montelukast 10 mg oral at bedtime for allergies; oxymetazoline b.i.d. 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 daily; levothyroxine 50 mcg oral daily; fenofibrate 160 mg oral daily; trazodone 100 mg p.o. 2200; olanzapine 5 mg p.o. at bedtime, 2.5 b.i.d. during the day; calcium Caltrate tablets 1 tab p.o. b.i.d.; Bentyl 10 mg 4 times a day. Otherwise, no significant medications. REVIEW OF SYSTEMS: A brief 10-point review of systems was done and patient was otherwise negative. On physical exam, normal gait and station. Unkempt. MENTAL STATUS EXAMINATION: This is a well-developed, ill-appearing female appearing older than stated age. Attention limited. Concentration limited. Speech normal rate, volume, and tone. Thought process: Linear and [facility] [address] [place] [address] HISTORY AND PHYSICAL Name: SINDHUPEYMAN K Room #: 518A-A [facility]#: [id number] Admission: 01/14/21 Attend Phys: Mari Cardsoo DO Discharge: 01/17/21 Date of : 45 Report #: [id number] goal directed. Thought content: Focused on present. No psychomotor agitation. No psychomotor retardation. Memory noted to be impaired, not formally tested. Mood and affect constricted, congruent. Denied SI, HI. Denied auditory, visual, or tactile hallucinations. Some hopelessness, no helplessness. Insight and judgment were impaired. Fund of knowledge below average. FORMULATION: A 75-year-old female brought in by EMS from independent living. The patient is in need of Memory Care placement at this time. Her son, Bony, is her DPOA. She is a full code at this time. ALLERGIES: Noted to be CIPROFLOXACIN, METRONIDAZOLE, ATORVASTATIN AND HYDROCODONE BITARTRATE. DX: Major Neuruocognitive Disorder Unspecified Depression PLAN: Evaluate, stabilize, obtain collateral. Work on placement. Hospitalist was consulted. Would not make any gross medication changes. I will see how the patient does in the next few days. We really need to get an aggressive start with placement as I think environmental issues are keys. strengths insures weaknesses not in memory care placement, MARI Cardoso DO AHK/HARRIETT/IQB <ELECTRONICALLY SIGNED> By: Mari Cardoso DO 01/17/21 2201 1453 [id number] Mari Cardoso DO /nt
--- NOTE | 2021-01-18 12:13 | D ---
[facility] [place] [address] DISCHARGE SUMMARY Name: PEYMAN MNALEY Room #: 518A-A [facility] IN .R.#: [id number] Admission: 01/14/21 Attend Phys: Mari Cardoso DO Discharge: 01/17/21 Date of : 45 Report #: [id number] THIS REPORT FOR: cc: Candice Olsen Linda J. DO Kerstein, Andrew H. DO ~ DOC #: [id number] MARI Cardoso DO DATE OF SERVICE: 01/17/2021 ATTENDING PSYCHIATRIST: Mari Cardoso DO HEARING STENOGRAPHER: Xander Hernández M.D. DISCHARGE DIAGNOSES: Major neurocognitive disorder likely due to Alzheimer's disease; unspecified depression, resolved. MEDICAL COMORBIDITIES: Include hypertension, hypothyroidism, seasonal allergies, history of diverticulitis, fibromyalgia, history of irritable bowel syndrome. DISCHARGE DIET: Continuing regular. ACTIVITY LEVEL: As tolerated. Recommend 24/ supervision and assistance, will be done by [facility]ging [facility] Home, [facility]. DISCHARGE MEDICATIONS: Propranolol 80 mg oral daily at 0900 hours for tachycardia, fenofibrate 145 mg oral daily for hypertriglyceridemia, calcium carbonate with D3 one tab p.o. daily Caltrate 600 with vitamin D, vitamin E 400 International Units oral daily, vitamin C 500 mg oral daily for supplementation supplementation, vitamin D 2000 international units oral daily for supplementation, Aricept 10 mg oral daily for cognitive enhancement, MiraLax 17 g oral daily for bowel motility, Imodium 4 mg oral q. 6 hours p.r.n. for diarrhea, levothyroxine 50 mcg oral daily for thyroid replacement, montelukast mg oral daily for allergy and asthma, dicyclomine 10 mg oral 5 times a day for irritable bowel syndrome, amlodipine 5 mg oral daily for hypertension, trazodone 100 mg oral daily at 2200 hours for sleep, actually can be p.r.n. LABORATORY DATA: Pertinent laboratories this admission are as follows: Hematology back on 01/14/2021 showed H and H of 13.5 and 40.1, white count 5.7, platelet count 338. Chemistry: Sodium 143, potassium 3.8, chloride 107, bicarbonate 30, BUN 9, creatinine 0.8, estimated GFR 70. Hemoglobin A1c 6.0, calcium 9.2, total bilirubin 0.3, AST 34, ALT 42, alkaline phosphatase 115. Lipids this admission, triglycerides 201. Cholesterol 274, LDL 194. TSH slightly high at 4.237, free T4 normal at 1.0, indicates subclinical [address] [address] DISCHARGE SUMMARY Name: PEYMAN MANLEY Room #: 518A-A [facility] IN [facility]#: [id number] Admission: 01/14/21 Attend Phys: Mari Cardoso, Discharge: 01/17/21 Date of : 45 Report #: [id number] hypothyroidism. This admission showed no growth on culture and some abnormalities on urinalysis. Toxicology positive for benzo, negative for alcohol. COVID-19 PCR serology was negative. REASON FOR ADMISSION: Back on 01/14/2021, a 75-year-old female initially brought to [facility] EMR via EMS for suicidal ideation. The patient had been hospitalized with us in November. Recommendation made for memory care placement, this was not done. This patient was admitted to Geriatric Psychiatry Unit. The patient's suicidality resolved almost overnight. She had no particular complaints. We had a meeting with her son, Bony, and sister, Ibeth. They were settled on having 24-hour care from Aging at home. It is not clear that whether that was put in place in the interval. It was explained that this would be considered negligence for the patient not to have 24-hour care and supervision at this point. The son and sister declined for placement in a memory care facility, which I recommended. The patient did not have physical/chemical restraint during this admission. PHYSICAL EXAMINATION: VITAL SIGNS: On day of discharge, temperature 36.1, pulse 70, respirations 16, BP 118/68. MUSCULOSKELETAL EXAM: Normal gait and station. MENTAL STATUS EXAM: Well-developed, fairly nourished female appearing stated age. Attention fair. Concentration limited. Speech normal rate, volume, and tone. Thought process: Linear and goal directed. Thought content: Focused on the present. Denied SI, HI, or auditory or visual type hallucinations. Mood and affect was congruent, constricted. Insight and judgment are limited. Fund of knowledge was below average. Prognosis for this patient is guarded given age of 75, medical comorbidities and having a neurodegenerative disorder. The patient certainly will need structured supportive care. DO ADI Kim/PALOMO/TAMI <ELECTRONICALLY SIGNED> By: Mari Cardoso DO 01/18/21 1213 1935 23 Mari Cardoso DO /nt
== END 2021-01-17 12:50 | DRG 57 ==
LOC: SBH 14:48
PROVIDERS: ADMIT Psychiatry & Neurology Psychiatry; ATTEND Psychiatry & Neurology Psychiatry
DX: G30.9 Alzheimer's disease, unspecified (principal); F02.80 Dementia in other diseases classified elsewhere, unspecified severity, without behavioral disturbance, psychotic disturbance, mood disturbance, and anxiety; F23 Brief psychotic disorder; R45.851 Suicidal ideations; F32.9 Major depressive disorder, single episode, unspecified; K58.9 Irritable bowel syndrome, unspecified; E03.9 Hypothyroidism, unspecified; M79.7 Fibromyalgia; F01.50 Vascular dementia, unspecified severity, without behavioral disturbance, psychotic disturbance, mood disturbance, and anxiety; J30.2 Other seasonal allergic rhinitis; G25.81 Restless legs syndrome; I10 Essential (primary) hypertension; Z88.8 Allergy status to other drugs, medicaments and biological substances; Z88.1 Allergy status to other antibiotic agents; Z90.49 Acquired absence of other specified parts of digestive tract
CPT/HCPCS: 10880

== ENCOUNTER 2021-01-14 16:03 | Emergency (ER) | payer OTHER ==
[~2021-01-14] VITALS: Ht 162.6 cm; Wt 54.4 kg
[2021-01-14 16:35] VITALS: BP 142/81
== END 2021-01-14 17:05 ==
LOC: ER 16:03
DX: F69 Unspecified disorder of adult personality and behavior (principal); Z20.822 Contact with and (suspected) exposure to COVID-19; R45.851 Suicidal ideations; F03.90 Unspecified dementia, unspecified severity, without behavioral disturbance, psychotic disturbance, mood disturbance, and anxiety; K21.9 Gastro-esophageal reflux disease without esophagitis; E78.5 Hyperlipidemia, unspecified; M79.7 Fibromyalgia; E03.9 Hypothyroidism, unspecified; G43.909 Migraine, unspecified, not intractable, without status migrainosus; Z79.899 Other long term (current) drug therapy; Z88.1 Allergy status to other antibiotic agents; Z88.8 Allergy status to other drugs, medicaments and biological substances; Z88.6 Allergy status to analgesic agent